=== PATIENT | male | born 1965 | race American Indian/Alaskan Native ===

== ENCOUNTER 2021-04-17 00:41 | Emergency (ER) | payer MEDICARE ==
--- NOTE | 2021-04-17 06:25 | Emergency Department Report ---
ED General Adult HPI - General Chief complaint: Arrhythmia/Palpitations Stated complaint: HEART RACING Time Seen by Provider: 04/17/21 06:10 Source: patient Mode of arrival: Ambulatory Limitations: No Limitations - History of Present Illness Initial comments: Patient is 55 years old male with history of end-stage renal disease on hemodialysis. Patient stated that he is compliant with his dialysis and last dialysis was Sunday. Patient presented to the ER complaining of heart racing and palpitation associated with chills but no fever. Patient stated that his symptoms started yesterday. Patient denied any cough or shortness of breath. No headache neck pain, abdominal pain, nausea or vomiting or diarrhea. - Related Data Previous Rx's Medication Instructions Recorded Last Taken Type Aspirin [Adult Aspirin] 81 mg PO DAILY #30 tablet. 02/24/21 Unknown Rx Doxazosin Mesylate [Cardura] 2 mg PO DAILY #60 tablet 02/24/21 Unknown Rx NIFEdipine XL [Procardia Xl] 90 mg PO QDAY #30 tablet 02/24/21 Unknown Rx cloNIDine [Catapres] 0.1 mg PO TID #90 tablet 02/24/21 Unknown Rx hydrALAZINE [Apresoline TAB] 100 mg PO TID #90 tab 02/24/21 Unknown Rx Allergies Allergy/AdvReac Type Severity Reaction Status Date / Time No Known Allergies Allergy Verified 02/21/21 08:33 ED Review of Systems ROS: Stated complaint: HEART RACING Other details as noted in HPI Comment: All other systems reviewed and negative Constitutional: chills. denies: fever Respiratory: denies: cough, shortness of breath, SOB with exertion, SOB at rest Cardiovascular: palpitations. denies: chest pain, dyspnea on exertion Gastrointestinal: denies: abdominal pain, nausea, vomiting, diarrhea, constipation, hematemesis, melena Musculoskeletal: denies: back pain Neurological: denies: headache, weakness ED Past Medical Hx - Past Medical History Previous Medical History?: Yes Hx Hypertension: Yes Hx Congestive Heart Failure: No Hx Diabetes: Yes Hx Renal Disease: Yes (MWF dialysis-fistula L arm) Hx Asthma: No Hx COPD: No Hx Dementia: Yes - Surgical History Past Surgical History?: No - Social History Smoking Status: Never Smoker Substance Use Type: None - Medications Home Medications: Home Medications Medication Instructions Recorded Confirmed Last Taken Type Aspirin [Adult Aspirin] 81 mg PO DAILY #30 tablet. 02/24/21 Unknown Rx Doxazosin Mesylate [Cardura] 2 mg PO DAILY #60 tablet 02/24/21 Unknown Rx NIFEdipine XL [Procardia Xl] 90 mg PO QDAY #30 tablet 02/24/21 Unknown Rx cloNIDine [Catapres] 0.1 mg PO TID #90 tablet 02/24/21 Unknown Rx hydrALAZINE [Apresoline TAB] 100 mg PO TID #90 tab 02/24/21 Unknown Rx ED Physical Exam - General Limitations: No Limitations General appearance: alert, in no apparent distress - Head Head exam: Present: atraumatic, normocephalic, normal inspection - Eye Eye exam: Present: normal appearance, PERRL - ENT ENT exam: Present: normal exam, normal orophraynx, mucous membranes moist - Neck Neck exam: Present: normal inspection, full ROM. Absent: tenderness, me ningismus - Respiratory Respiratory exam: Present: normal lung sounds bilaterally - Cardiovascular Cardiovascular Exam: Present: regular rate, normal rhythm, normal heart sounds - GI/Abdominal GI/Abdominal exam: Present: soft, normal bowel sounds. Absent: distended, tenderness, guarding, rebound, rigid, organomegaly, mass, bruit, pulsatile mass, hernia - Extremities Exam Extremities exam: Present: normal inspection, full ROM, normal capillary refill. Absent: tenderness, pedal edema, calf tenderness - Back Exam Back exam: Present: normal inspection, full ROM. Absent: CVA tenderness (R), CVA tenderness (L) - Neurological Exam Neurological exam: Present: alert, oriented X3, CN II-XII intact, normal gait, reflexes normal. Absent: motor sensory deficit - Psychiatric Psychiatric exam: Present: normal mood - Skin Skin exam: Present: warm, intact, normal color ED Course Vital Signs 04/17/21 04/17/21 04/17/21 01:51 06:44 07:00 Temperature 97.7 F Pulse Rate 98 H 80 Respiratory 18 9 L Rate Blood Pressure 170/100 178/98 O2 Sat by Pulse 99 100 99 Oximetry 04/17/21 04/17/21 04/17/21 07:55 08:00 09:00 Temperature Pulse Rate 75 79 Respiratory 18 11 L 12 Rate Blood Pressure 148/92 149/92 O2 Sat by Pulse 98 100 Oximetry 04/17/21 10:01 Temperature Pulse Rate 70 Respiratory 10 L Rate Blood Pressure 170/92 O2 Sat by Pulse 100 Oximetry ED Medical Decision Making - Lab Data Result diagrams: 04/17/21 06:46 04/17/21 08:02 - EKG Data -: EKG Interpreted by Me EKG shows normal: sinus rhythm Rate: normal - EKG Data Interpretation: no acute changes - Radiology Data Radiology results: report reviewed - Medical Decision Making Patient is 55 years old male with history of end-stage renal disease on hemodialysis. Patient stated that he is compliant with his dialysis and last dialysis was Sunday. Patient presented to the ER complaining of heart racing and palpitation associated with chills but no fever. Patient stated that his symptoms started yesterday. Patient denied any cough or shortness of breath. No headache neck pain, abdominal pain, nausea or vomiting or diarrhea. EKG is unremarkable. Chest x-ray is negative for acute finding. Labs reviewed and is unremarkable except for troponin initially slightly elevated however declined second set. Patient still denying any chest pain or shortness of breath. Patient advised to follow-up with his primary doctor in the next 2 to 3 days and to return to the ER if he develop any new symptoms. Critical care attestation.: If time is entered above; I have spent that time in minutes in the direct care of this critically ill patient, excluding procedure time. ED Disposition Clinical Impression: Palpitation Disposition: DC-01 TO HOME OR SELFCARE Is pt being admited?: No Condition: Stable Instructions: Palpitations, [id number] Referrals: KESHAWN DONOVAN MD [Primary Care Provider] - 3-5 Days
--- NOTE | 2021-04-17 06:54 | XRay Report ---
CHEST 1 VIEW INDICATION: chest pain COMPARISON: 02/22/2021 FINDINGS: SUPPORT DEVICES: None. HEART / MEDIASTINUM: No significant abnormality. LUNGS / PLEURA: No significant pulmonary or pleural abnormality. No pneumothorax. ADDITIONAL FINDINGS: IMPRESSION: 1. No acute cardiopulmonary disease Signer Name: Jass Baker MD Signed: 04/17/2021 6:49 AM Workstation Name: [id number]
[2021-04-17 07:05] LABS: Basophils % (Auto) 0.9 % (0.0-1.8); Eosinophils % (Auto) 0.6 % (0.0-4.3); Hematocrit 41.3 % (35.5-45.6); Hemoglobin 14.1 gm/dl (11.8-15.2); Lymphocytes # (Auto) 0.5 K/mm3 (1.2-5.4); Mean Corpuscular HGB Conc 34 % (32-34); Mean Corpuscular Volume 101 fl (84-94); Monocytes # (Auto) 0.3 K/mm3 (0.0-0.8); Monocytes % (Auto) 7.6 % (0.0-7.3); Platelet Count 135 K/mm3 (140-440); Red Blood Count 4.11 M/mm3 (3.65-5.03); Red Cell Distribution Width 14.7 % (13.2-15.2)
[2021-04-17 08:31] LABS: Calcium 9.3 mg/dL (8.4-10.2)
[2021-04-17 11:25] VITALS: BP 173/94
[2021-04-17 11:36] LABS: Chol/HDL Ratio 3.3 %
--- NOTE | 2021-04-18 21:39 | Electrocardiograph Report ---
[facility] Test Date: 2021-04-17 Test Time: 01:58:31 Pat Name: TOM MARTINES Department: Room: Gender: M [employer]: CODY : 1965 Requested By: PATRIZIA SCHMITT Order Number: [id number] Reading MD: Charlene Messina Measurements Intervals Globe Rate: 93 P: 64 WY: 182 QRS: -57 QRSD: 106 T: 76 QT: 388 QTc: 483 Interpretive Statements Sinus rhythm Left anterior fascicular block Left ventricular hypertrophy Compared to ECG 02/22/2021 08:50:13 No significant change Electronically Signed On 04-18-2021 21:38:47 EDT by Charlene Messina
== END 2021-04-17 11:24 | disposition home or self-care (01) ==
LOC: ED 00:41
DX: R00.2 Palpitations (principal); R00.0 Tachycardia, unspecified; I13.2 Hypertensive heart and chronic kidney disease with heart failure and with stage 5 chronic kidney disease, or end stage renal disease; E11.22 Type 2 diabetes mellitus with diabetic chronic kidney disease; N18.6 End stage renal disease; I50.9 Heart failure, unspecified; F03.90 Unspecified dementia, unspecified severity, without behavioral disturbance, psychotic disturbance, mood disturbance, and anxiety; Z99.2 Dependence on renal dialysis; Z79.82 Long term (current) use of aspirin; Z79.899 Other long term (current) drug therapy
CPT/HCPCS: 36415; 71045; 80048; 80061; 84484; 85025; 93005; 99283